=== PATIENT | male | born 1985 | race Caucasian/White ===

== ENCOUNTER 2019-11-17 01:08 | Inpatient (IN) | payer OTHER ==
[~2019-11-17] VITALS: Ht 182.9 cm; Wt 104.8 kg
[2019-11-17 02:25] LABS: CHLORIDE 106 mEq/L (98-107); HEMATOCRIT. 45.8 % (42.0-52.0); HEMOGLOBIN. 15.8 g/dL (14.0-18.0); MEAN CORPUSCULAR HEMOGLOBIN 29.2 pg (28.0-32.0); MEAN CORPUSCULAR VOLUME 84.7 fL (80.0-94.0); MEAN PLATELET VOLUME 7.2 fl (7.4-10.4); PLATELET 353 x1000/uL (130-400); RED BLOOD CELL COUNT 5.41 mill/uL (4.7-6.1); RED CELL DISTRIBUTION WIDTH 13.2 % (11.6-14.6)
[2019-11-17 02:28] LABS: ETHANOL BLOOD < 10 mg/dL
[2019-11-17 02:30] LABS: D-DIMER 0.65 mg/L FEU (<0.50); PROTHROMBIN TIME 10.4 sec (9.6-11.0)
[2019-11-17 02:33] LABS: CREATINE KINASE 408 IU/L (39-308)
[2019-11-17] MEDS ORDERED: GUAIFENESIN-DM 200MG-20MG/10ML UDC PO PRN (04:00)
[2019-11-17] MEDS ORDERED: ALBUTEROL 6.7GM HFA INHALER ORI PRN (04:00)
[2019-11-17] MEDS: CEFTRIAXONE 1 G PREMIX 50 ML IV SCH (04:30)
[2019-11-17 05:00] VITALS: BP 132/90
[2019-11-17] MEDS ORDERED: ENOXAPARIN 100MG/ML SYR SUBCUT SCH (05:00)
[2019-11-17 05:52] VITALS: BP 155/90
[2019-11-17 05:56] LABS: PLATELET ESTIMATE NORMAL
[2019-11-17 08:52] VITALS: BP 128/91
[2019-11-17] MEDS: AZITHROMYCIN 500 MG TABLET PO SCH (09:57)
[2019-11-17] MEDS: DEXAMETHASONE 4MG TABLET PO SCH (09:58)
[2019-11-17] MEDS: GUAIFENESIN 600MG ER TABLET PO SCH ×2 (09:58→13:10)
[2019-11-17] MEDS: FAMOTIDINE 20MG TABLET PO SCH ×2 (09:58→21:13)
[2019-11-17 11:21] VITALS: BP 129/79
[2019-11-17] MEDS: ACETAMINOPHEN 650MG/20.3ML UDC PO PRN (13:10)
[2019-11-17 16:52] VITALS: BP 128/84
[2019-11-17] MEDS: ENOXAPARIN 100MG/ML SYR SUBCUT SCH (17:20)
[2019-11-17 20:00] VITALS: BP 124/86
[2019-11-17] MEDS ORDERED: TEMAZEPAM 15MG CAPSULE PO PRN (21:00)
[2019-11-18] VITALS: BP 112/73
[2019-11-18] MEDS: ENOXAPARIN 100MG/ML SYR SUBCUT SCH ×2 (03:02→14:11)
[2019-11-18] MEDS: CEFTRIAXONE 1 G PREMIX 50 ML IV SCH (03:32)
[2019-11-18 04:00] VITALS: BP 101/64
[2019-11-18 08:00] VITALS: BP 105/66
[2019-11-18 08:19] LABS: CLARITY URINE CLEAR (CLEAR); COLOR URINE DARK YELLOW (YELLOW); KETONES URINE NEGATIVE (NEGATIVE); LEUKOCYTE ESTERASE URINE NEGATIVE (NEGATIVE); NITRITE URINE NEGATIVE (NEGATIVE); OCCULT BLOOD URINE NEGATIVE (NEGATIVE); PROTEIN URINE 2+ (NEGATIVE); SPECIFIC GRAVITY URINE 1.029 (1.005-1.030)
[2019-11-18] MEDS: GUAIFENESIN 600MG ER TABLET PO SCH ×2 (08:19→21:06)
[2019-11-18] MEDS: DEXAMETHASONE 4MG TABLET PO SCH (08:19)
[2019-11-18] MEDS: AZITHROMYCIN 500 MG TABLET PO SCH (08:19)
[2019-11-18] MEDS: FAMOTIDINE 20MG TABLET PO SCH ×2 (08:19→21:05)
[2019-11-18 11:08] LABS: BG BASE EXCESS -2.9 mmol/L (-2.0-2.0); BG CARBOXYHEMOGLOBIN 0.6 % (0.5-1.5); BG DEOXYHEMOGLOBIN 8.3 % (0.0-5.0); BG FRACTION INSPIRED OXYGEN 21; BG HCO3 ACT 20.1 mmol/L (22.0-26.0); BG METHEMOGLOBIN 0.3 % (0.0-1.5); BG OXYGEN SATURATION 91.6 % (92.0-98.5); BG OXYHEMOGLOBIN 90.8 % (94.0-97.0); BG PCO2 31.1 mmHg (35.0-45.0); BG PH 7.428 (7.350-7.450); BG PO2 62.5 mmHg (75.0-100.0); BG SAMPLE SITE RIGHT RADIAL; BG TOTAL HEMOGLOBIN 16.8 g/dL (12.0-18.0); BG VENT MODE ROOM AIR
[2019-11-18 12:00] VITALS: BP 97/69
[2019-11-18] MEDS: ZINC SULFATE 220 MG ( 50 ) CAPSULE PO SCH (14:10)
[2019-11-18] MEDS: THIAMINE HCL 200 MG in SODIUM CHLORIDE 0.9% 98 ML IV SCH (14:11)
[2019-11-18 16:00] VITALS: BP 110/76
[2019-11-18] MEDS: CHOLECALCIFEROL (D3) 1000 UNIT TABLET PO SCH (17:07)
[2019-11-18 20:00] VITALS: BP 115/77
[2019-11-19] VITALS: BP 112/77
[2019-11-19 04:00] VITALS: BP 103/66
[2019-11-19] MEDS: ENOXAPARIN 100MG/ML SYR SUBCUT SCH ×2 (04:05→14:14)
[2019-11-19] MEDS: CEFTRIAXONE 1 G PREMIX 50 ML IV SCH (05:28)
[2019-11-19 08:00] VITALS: BP 110/72
[2019-11-19] MEDS: THIAMINE HCL 200 MG in SODIUM CHLORIDE 0.9% 98 ML IV SCH (09:29)
[2019-11-19] MEDS: AZITHROMYCIN 500 MG TABLET PO SCH (09:29)
[2019-11-19] MEDS: ZINC SULFATE 220 MG ( 50 ) CAPSULE PO SCH (09:29)
[2019-11-19] MEDS: GUAIFENESIN 600MG ER TABLET PO SCH ×2 (09:29→20:16)
[2019-11-19] MEDS: DEXAMETHASONE 4MG TABLET PO SCH (09:29)
[2019-11-19] MEDS: FAMOTIDINE 20MG TABLET PO SCH ×2 (09:29→20:16)
[2019-11-19] MEDS: CHOLECALCIFEROL (D3) 1000 UNIT TABLET PO SCH ×2 (09:29→17:09)
[2019-11-19 09:54] LABS: BG BASE EXCESS -1.5 mmol/L (-2.0-2.0); BG CARBOXYHEMOGLOBIN 0.3 % (0.5-1.5); BG DEOXYHEMOGLOBIN 5.3 % (0.0-5.0); BG FRACTION INSPIRED OXYGEN 28; BG HCO3 ACT 21.8 mmol/L (22.0-26.0); BG METHEMOGLOBIN 0.2 % (0.0-1.5); BG OXYGEN SATURATION 94.7 % (92.0-98.5); BG OXYHEMOGLOBIN 94.2 % (94.0-97.0); BG PCO2 33.4 mmHg (35.0-45.0); BG PH 7.433 (7.350-7.450); BG PO2 71.6 mmHg (75.0-100.0); BG SAMPLE SITE RIGHT BRACHIAL; BG TOTAL HEMOGLOBIN 16.1 g/dL (12.0-18.0); BG VENT MODE NASAL CANNULA
[2019-11-19 12:00] VITALS: BP 116/71
[2019-11-19] MEDS: ALBUTEROL 6.7GM HFA INHALER ORI SCH ×3 (13:14→23:38)
[2019-11-19] MEDS ORDERED: REMDESIVIR 200 MG in SODIUM CHLORIDE 0.9% 250 ML IV NR (14:00)
[2019-11-19 16:00] VITALS: BP 116/73
[2019-11-19 16:16] LABS: HEMATOCRIT. 47.3 % (42.0-52.0); HEMOGLOBIN. 16.5 g/dL (14.0-18.0); MEAN CORPUSCULAR HEMOGLOBIN 29.5 pg (28.0-32.0); MEAN CORPUSCULAR VOLUME 84.9 fL (80.0-94.0); MEAN PLATELET VOLUME 7.1 fl (7.4-10.4); PLATELET 600 x1000/uL (130-400); RED BLOOD CELL COUNT 5.58 mill/uL (4.7-6.1); RED CELL DISTRIBUTION WIDTH 13.1 % (11.6-14.6)
[2019-11-19 16:22] LABS: CHLORIDE 107 mEq/L (98-107)
[2019-11-19 18:43] LABS: PLATELET ESTIMATE MARKEDLY INCREASED
[2019-11-19 20:00] VITALS: BP 98/70
[2019-11-20] VITALS: BP 105/66
[2019-11-20 04:00] VITALS: BP 101/61
[2019-11-20] MEDS: CEFTRIAXONE 1 G PREMIX 50 ML IV SCH (05:19)
[2019-11-20] MEDS: ALBUTEROL 6.7GM HFA INHALER ORI SCH ×3 (05:19→16:52)
[2019-11-20 06:47] LABS: CHLORIDE 109 mEq/L (98-107)
[2019-11-20 08:00] VITALS: BP 101/63
[2019-11-20] MEDS: ENOXAPARIN 100MG/ML SYR SUBCUT SCH ×2 (08:41→22:05)
[2019-11-20] MEDS: CHOLECALCIFEROL (D3) 1000 UNIT TABLET PO SCH ×2 (08:41→16:51)
[2019-11-20] MEDS: AZITHROMYCIN 500 MG TABLET PO SCH (08:42)
[2019-11-20] MEDS: DEXAMETHASONE 4MG TABLET PO SCH (08:42)
[2019-11-20] MEDS: ZINC SULFATE 220 MG ( 50 ) CAPSULE PO SCH (08:42)
[2019-11-20] MEDS: FAMOTIDINE 20MG TABLET PO SCH ×2 (08:42→22:05)
[2019-11-20] MEDS: GUAIFENESIN 600MG ER TABLET PO SCH ×2 (08:42→22:05)
[2019-11-20] MEDS: THIAMINE HCL 200 MG in SODIUM CHLORIDE 0.9% 98 ML IV SCH (09:16)
[2019-11-20 12:00] VITALS: BP 107/74
[2019-11-20] MEDS: REMDESIVIR 100 MG in SODIUM CHLORIDE 0.9% 250 ML IV SCH (14:26)
[2019-11-20 20:00] VITALS: BP 99/54
[2019-11-21] VITALS: BP 105/61
[2019-11-21 04:00] VITALS: BP 107/67
[2019-11-21] MEDS: CEFTRIAXONE 1 G PREMIX 50 ML IV SCH (05:39)
[2019-11-21] MEDS: ALBUTEROL 6.7GM HFA INHALER ORI SCH ×4 (05:40→18:00)
[2019-11-21 06:41] LABS: CHLORIDE 107 mEq/L (98-107)
[2019-11-21 08:00] VITALS: BP 106/60
[2019-11-21] MEDS: ZINC SULFATE 220 MG ( 50 ) CAPSULE PO SCH (08:53)
[2019-11-21] MEDS: AZITHROMYCIN 500 MG TABLET PO SCH (08:53)
[2019-11-21] MEDS: CHOLECALCIFEROL (D3) 1000 UNIT TABLET PO SCH ×2 (08:53→18:11)
[2019-11-21] MEDS: GUAIFENESIN 600MG ER TABLET PO SCH ×2 (08:53→21:00)
[2019-11-21] MEDS: FAMOTIDINE 20MG TABLET PO SCH ×2 (08:53→21:00)
[2019-11-21] MEDS: DEXAMETHASONE 4MG TABLET PO SCH (08:54)
[2019-11-21] MEDS: ENOXAPARIN 100MG/ML SYR SUBCUT SCH ×2 (08:54→21:00)
[2019-11-21] MEDS: THIAMINE HCL 200 MG in SODIUM CHLORIDE 0.9% 98 ML IV SCH (09:11)
[2019-11-21 12:00] VITALS: BP 102/58
[2019-11-21] MEDS: REMDESIVIR 100 MG in SODIUM CHLORIDE 0.9% 250 ML IV SCH (14:42)
[2019-11-21 16:00] VITALS: BP 105/59
[2019-11-21 20:00] VITALS: BP 101/50
[2019-11-22] VITALS: BP 98/56
[2019-11-22 04:00] VITALS: BP 100/58
[2019-11-22] MEDS: ALBUTEROL 6.7GM HFA INHALER ORI SCH ×4 (06:00→17:04)
[2019-11-22 07:07] LABS: CHLORIDE 106 mEq/L (98-107)
[2019-11-22 08:00] VITALS: BP 96/53
[2019-11-22] MEDS: FAMOTIDINE 20MG TABLET PO SCH ×2 (09:00→21:00)
[2019-11-22] MEDS: GUAIFENESIN 600MG ER TABLET PO SCH ×2 (09:00→21:00)
[2019-11-22] MEDS: CHOLECALCIFEROL (D3) 1000 UNIT TABLET PO SCH ×2 (10:05→17:18)
[2019-11-22] MEDS: ZINC SULFATE 220 MG ( 50 ) CAPSULE PO SCH (10:05)
[2019-11-22] MEDS: DEXAMETHASONE 4MG TABLET PO SCH (10:06)
[2019-11-22] MEDS: ENOXAPARIN 100MG/ML SYR SUBCUT SCH ×2 (10:07→21:00)
[2019-11-22] MEDS: THIAMINE HCL 200 MG in SODIUM CHLORIDE 0.9% 98 ML IV SCH (10:28)
[2019-11-22] MEDS: AZITHROMYCIN 500 MG TABLET PO SCH (10:29)
[2019-11-22 12:00] VITALS: BP 93/47
[2019-11-22] MEDS: REMDESIVIR 100 MG in SODIUM CHLORIDE 0.9% 250 ML IV SCH (13:23)
[2019-11-22 16:00] VITALS: BP 108/60
[2019-11-22 20:00] VITALS: BP 116/63
[2019-11-22] MEDS: ACETAMINOPHEN 650MG/20.3ML UDC PO PRN (22:16)
[2019-11-23] VITALS: BP 99/61
[2019-11-23 04:00] VITALS: BP 109/63
[2019-11-23] MEDS: ALBUTEROL 6.7GM HFA INHALER ORI SCH ×4 (05:18→17:00)
[2019-11-23 08:00] VITALS: BP 104/62
[2019-11-23] MEDS: CHOLECALCIFEROL (D3) 1000 UNIT TABLET PO SCH ×2 (08:55→16:59)
[2019-11-23] MEDS: FAMOTIDINE 20MG TABLET PO SCH (08:55)
[2019-11-23] MEDS: ZINC SULFATE 220 MG ( 50 ) CAPSULE PO SCH (08:55)
[2019-11-23] MEDS: GUAIFENESIN 600MG ER TABLET PO SCH (08:59)
[2019-11-23] MEDS: ENOXAPARIN 100MG/ML SYR SUBCUT SCH (09:00)
[2019-11-23] MEDS ORDERED: DEXAMETHASONE 4MG TABLET PO SCH (09:00)
[2019-11-23] MEDS: THIAMINE HCL 200 MG in SODIUM CHLORIDE 0.9% 98 ML IV SCH (10:09)
[2019-11-23 10:39] LABS: CHLORIDE 104 mEq/L (98-107)
[2019-11-23 12:00] VITALS: BP 100/45
[2019-11-23] MEDS: REMDESIVIR 100 MG in SODIUM CHLORIDE 0.9% 250 ML IV SCH (13:50)
[2019-11-23 16:00] VITALS: BP 95/47
[2019-11-23 17:34] VITALS: BP 95/47
== END 2019-11-23 18:48 | disposition home or self-care (01) | DRG 720 ==
LOC: ER 01:08 → 7WST 02:10 → EDBEDREQTM 02:11 → EDBEDREQ 02:11 → EDBEDREQSVC 02:11 → ENRESERV 03:09
PROVIDERS: ADMIT Internal Medicine; ATTEND Internal Medicine
DX: A41.89 Other specified sepsis (principal); U07.1 COVID-19; J96.01 Acute respiratory failure with hypoxia; J12.89 Other viral pneumonia; B97.89 Other viral agents as the cause of diseases classified elsewhere; D68.59 Other primary thrombophilia; R74.0 Nonspecific elevation of levels of transaminase and lactic acid dehydrogenase [LDH]; Z79.899 Other long term (current) drug therapy
CPT/HCPCS: 36415; 36600; 71045; 80053; 80320; 81003; 82375; 82550; 82728; 82805; 83605; 83615; 83880; 84145; 84484; 85025; 85379; 93005; 99291; J0696; J1650; J3411; J7050; J8540; Q9957; G0480; U0003-CS

== ENCOUNTER 2021-03-19 09:00 | Emergency (ER) | payer MEDICAID, OTHER ==
[~2021-03-19] VITALS: Ht 180.3 cm; Wt 100.0 kg
[2021-03-19] MEDS ORDERED: ACETAMINOPHEN 325MG TABLET PO STA (09:33)
[2021-03-19] MEDS ORDERED: KETOROLAC 30MG/ML VIAL IV STA (09:33)
[2021-03-19] MEDS ORDERED: SODIUM CHLORIDE 0.9% 1,000 ML IV ONE (09:45)
[2021-03-19 10:16] LABS: BASOPHILS % 0.2 % (0.0-2.0); EOSINOPHILS % 0.1 % (0.0-5.0); HEMATOCRIT. 45.7 % (42.0-52.0); HEMOGLOBIN. 15.9 g/dL (14.0-18.0); LYMPHOCYTES % 10.6 % (20.0-50.0); MEAN CORPUSCULAR HEMOGLOBIN 29.1 pg (28.0-32.0); MEAN CORPUSCULAR VOLUME 83.8 fL (80.0-94.0); MEAN PLATELET VOLUME 7.8 fl (7.4-10.4); MONOCYTES % 7.9 % (2.0-8.0); NEUTROPHILS % 81.2 % (40.0-76.0); PLATELET 260 x1000/uL (130-400); RED BLOOD CELL COUNT 5.45 mill/uL (4.7-6.1); RED CELL DISTRIBUTION WIDTH 14.2 % (11.6-14.6)
[2021-03-19 10:23] LABS: CHLORIDE 100 mEq/L (98-107)
[2021-03-19 10:31] LABS: INR 1.1; PROTHROMBIN TIME 11.3 sec (9.6-11.0)
[2021-03-19] MEDS ORDERED: TOPUD PO (11:44)
[2021-03-19 12:46] VITALS: BP 112/76
== END 2021-03-19 12:49 | disposition home or self-care (01) ==
LOC: ER 09:00 → CANBEDREQ 16:06
DX: B34.9 Viral infection, unspecified (principal); I25.2 Old myocardial infarction; Z86.19 Personal history of other infectious and parasitic diseases; Z20.822 Contact with and (suspected) exposure to COVID-19
CPT/HCPCS: 36415; 71045; 80053; 83605; 84145; 84484; 85025; 85610; 87040; 87070; 87426; 87430; 87804; 93005; 96361; 96374; 99285; J1885; J7030; Z7610

== ENCOUNTER 2021-03-20 23:52 | Emergency (ER) | payer MEDICAID, OTHER ==
[~2021-03-20] VITALS: Ht 180.3 cm; Wt 100.0 kg
[~2021-03-20 23:52] MED LIST: TOPUD PO
[2021-03-21] MEDS ORDERED: KETOROLAC 30MG/ML VIAL IV STA (00:32)
[2021-03-21] MEDS ORDERED: SODIUM CHLORIDE 0.9% 1,000 ML IV ONE (00:45)
[2021-03-21] MEDS ORDERED: DEXAMETHASONE 10 MG/ML VIAL IV ONE (00:45)
[2021-03-21] MEDS ORDERED: CEFTRIAXONE 1 G PREMIX 50 ML IV ONE (00:45)
[2021-03-21] MEDS ORDERED: AMOX-424 MT (02:05)
[2021-03-21] MEDS ORDERED: IBUP-2028 MT (02:05)
[2021-03-21 03:00] VITALS: BP 128/74
== END 2021-03-21 03:10 | disposition home or self-care (01) ==
LOC: ER 23:52
DX: J36 Peritonsillar abscess (principal)
CPT/HCPCS: 96365; 96375; 99284; J0696; J1100; J1885; J7030